=== PATIENT | female | born 1960 ===

== ENCOUNTER 2022-11-02 08:56 | Outpatient (RCR) | payer OTHER, SELFPAY ==
--- NOTE | 2022-11-02 09:48 | OPREHPOC ---
Outpatient Therapy Plan of Care This is a Multidisciplinary Plan of Care that may contain components documented by all disciplines (PT, OT, and ST.) PT Problem 1 PT Problem #1 Knowledge Deficit PT Goal 1 Goal 1. Patient will perform independent HEP Target Visit 7 PT Problem 2 PT Problem #2 Pain PT Goal 1 Goal 1. No pain with pelvic exam to allow for full medical management Target Visit 7 PT Problem 3 PT Problem #3 Impaired Functional ADLs PT Goal 1 Goal 1. Patient will be able to void within 30 seconds of attempting to initiate stream Target Visit 7
--- NOTE | 2022-11-02 09:48 | PTOPEVAL1 ---
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 Reports she is now having difficulty initiating her urine stream and had pain with her most recent pelvic exam. Voids less than 10 times a day and maybe once at night. No incontinence. No pain with urination. Can hold urge a long time . May have to sit on the toilet for 5 minutes before able to void. BM varies- may not go for a few days and then will go for a few days. No pain other than intermittent due to hemorrhoid. Pelvic pain with most recent exam and with intercourse. Highest pain 5-6/10 and lowest 0 /10. Pt had partial hysterectomy about 20 years ago, history of very heavy periods and endometriosis, diabetes. Pt has been 1 time with delivery. Previous bladder infection and sepsis. No return to MD scheduled currently. Patient goal: be able to pee, voices frustration with having to sit a long time while at work. Sometimes avoids going out in public due to having to deal with it in public bathrooms. Symptoms have significantly worsened since her tumor in 2021. Reported Pain Level Pain Score 0: Self Report Assessment PT Clinical Summary The patient is presenting to skilled therapy with a history of pelvic pain and difficulty initiating urine stream that has greatly worsened over the last year after an ovarian tumor removal. She presents with increased pelvic floor muscle tone and pain with palpation, and decreased core and hip strength which are contributing to her pain and difficulty with activities like voiding and tolerating pelvic exams. She will benefit from therapy to address these impairments and safely return to prior level. Plan of Care Interventions Manual Therapy,Neuro Re-education,Patient/ Caregiver Education,Therapeutic Activities, Therapeutic Exercise PT Services Indicated Yes Treatment Frequency and 1 time a week for 6 visits Duration These treatments will address the objective and functional deficits as defined above. The patient will be advanced safely and appropriately in order for th
--- NOTE | 2022-11-08 12:32 | PTOPDC ---
Assessment and note entered by Aarti Sanches DPT Evaluation Information Assessment Status Discharge - Pt Not Present Subjective Information - Assessment PT Clinical Summary Patient is self discharging from therapy at this time. Plan of Care PT Services Indicated No
== END 2022-11-08 13:48 | disposition home or self-care (01) ==
LOC: ANHPT 08:56
DX: M62.89 Other specified disorders of muscle (principal)
CPT/HCPCS: 97162; 97530